=== PATIENT | female | born 1935 | race Caucasian/White ===

== ENCOUNTER 2017-12-02 18:29 | Inpatient (IN) | payer OTHER ==
[~2017-12-02] VITALS: Ht 167.6 cm; Wt 42.0 kg
[~2017-12-02 18:29] MED LIST: ASPI-611 PO; ATOR10TA PO; CARV3.12 PO; CIPR-260 PO; IPRA3AMP IH; LEVO75TA7 PO; LISI1TAB13 PO; SERIN IH
[2017-12-02] MEDS ORDERED: methylPREDNISolone sod succ 125mg/2ml vial IV ONE (18:45)
[2017-12-02] MEDS ORDERED: ipratropium/albuterol 3ml nebule NEB ONE (18:45)
[2017-12-02] MEDS ORDERED: normal saline 1000ML IV soln IVB ONE (18:45)
[2017-12-02 19:10] LABS: BASOPHILS % (AUTO) 0.1 % (0-1); EOSINOPHILS # (AUTO) 0.1 X10'3 (0-0.9); EOSINOPHILS % (AUTO) 1.5 % (0-6); HEMATOCRIT 42.7 % (35.0-45.0); HEMOGLOBIN 14.4 g/dl (12.0-16.0); LYMPHOCYTES # (AUTO) 0.7 X10'3 (1.1-4.8); LYMPHOCYTES % (AUTO) 9.1 % (21-51); MEAN CORPUSCULAR HEMOGLOBIN 30.8 PG (27.0-31.0); MEAN CORPUSCULAR HGB CONC 33.7 % (33.0-36.5); MEAN CORPUSCULAR VOLUME 91.6 FL (78-98); MEAN PLATELET VOLUME 7.4 FL (7.4-10.4); MONOCYTES # (AUTO) 0.4 X10'3 (0-0.9); NEUTROPHILS # (AUTO) 6.4 X10'3 (1.8-7.7); NEUTROPHILS % (AUTO) 84.3 % (42-75); PLATELET COUNT 213 X10'3 (140-440); RED BLOOD COUNT 4.67 X10'6 (4.20-5.60); WHITE BLOOD COUNT 7.6 X10'3 (4.5-11.0)
[2017-12-02 19:24] LABS: INR 0.9 INR; PARTIAL THROMBOPLASTIN TIME 28 SECONDS (22-32); PROTHROMBIN TIME 9.5 SECONDS (9.0-12.0)
[2017-12-02 19:36] LABS: ALANINE AMINOTRANSFERASE 42 U/L (12-78); ALBUMIN/GLOBULIN RATIO 1.2 (1.1-1.5); ALKALINE PHOSPHATASE 95 IU/L (46-116); ANION GAP 4 (8-16); ASPARTATE AMINO TRANSFERASE 41 U/L (10-37); BILIRUBIN,TOTAL 0.4 MG/DL (0.1-1.0); BLOOD UREA NITROGEN 17 MG/DL (7-18); CHLORIDE 100 MMOL/L (99-107); CREATININE 0.81 MG/DL (0.40-0.90); GLUCOSE 137 MG/DL (70-104); SODIUM 138 MMOL/L (135-145); TOTAL CARBON DIOXIDE 34.5 MMOL/L (24-32); TOTAL PROTEIN 7.4 G/DL (6.4-8.2); eGFR 68 ML/MIN
[2017-12-02] MEDS ORDERED: normal saline 1000ml 1,000 ML IV SCH (22:16)
[2017-12-02] MEDS ORDERED: diphenhydrAMINE 25mg capsule PO PRN (22:20)
[2017-12-02] MEDS ORDERED: magnesium hydroxide 30ml (MOM) UD suspension PO PRN (22:20)
[2017-12-02] MEDS ORDERED: morphine 2 MG/ML inj. syringe IV PRN ×2 (22:20)
[2017-12-02] MEDS ORDERED: acetaminophen 650mg rectal suppository RC PRN (22:20)
[2017-12-02] MEDS ORDERED: HYDROcodone/acetaminophen 5mg/325mg tablet PO PRN (22:20)
[2017-12-02] MEDS ORDERED: diphenhydrAMINE 50 mg/ml inj IV PRN (22:20)
[2017-12-02] MEDS ORDERED: bisacodyl 10mg suppository rectal RC PRN (22:20)
[2017-12-02] MEDS ORDERED: metoclopramide 5 mg/ml inj IV PRN (22:20)
[2017-12-02] MEDS ORDERED: acetaminophen 325mg tablet PO PRN ×2 (22:20)
[2017-12-02] MEDS ORDERED: mag hydrox/Alum hydrox/simeth 30ml oral suspension PO PRN (22:20)
[2017-12-02] MEDS ORDERED: ondansetron/PF 4mg/2ml inj IV PRN (22:20)
[2017-12-02] MEDS ORDERED: HYDROmorphone inj. 0.5 MG/0.5 ML DISP.SYRIN IV PRN ×2 (22:20)
[2017-12-02] MEDS ORDERED: levoFLOXACIN-Levaquin 500mg/D5 100 ML IV ONE (22:40)
[2017-12-02 22:47] LABS: MAGNESIUM 1.8 MG/DL (1.5-2.4)
[2017-12-02 23:30] VITALS: BP 151/108
[2017-12-03] MEDS ORDERED: cefTRIAXone 1g/NS 100ml IVPB 100 ML IV ONE (00:20)
[2017-12-03] MEDS: temazepam 15mg capsule PO PRN ×2 (02:06→21:57)
[2017-12-03] MEDS: ipratropium/albuterol 3ml nebule IH SCH ×3 (07:30→21:00)
[2017-12-03] MEDS: methylPREDNISolone sod succ 125mg/2ml vial IV SCH ×2 (07:49→19:41)
[2017-12-03] MEDS: levoTHYROXINE 75mcg tablet PO SCH (07:49)
[2017-12-03] MEDS: aspirin 81mg tablet.DR PO SCH (07:50)
[2017-12-03] MEDS: HYDROchlorothiazide 12.5mg capsule PO SCH (07:50)
[2017-12-03] MEDS: carVEDilol 3.125mg tablet PO SCH ×2 (07:50→19:41)
[2017-12-03] MEDS: lisinopril 10 MG tablet PO SCH (07:51)
[2017-12-03] MEDS: azithromycin 250mg tablet PO SCH (07:51)
[2017-12-03] MEDS: heparin, porcine 5000 units/ml vial SQ SCH ×2 (07:51→19:41)
[2017-12-03] MEDS: cefTRIAXone 1g/NS 100ml IVPB 100 ML IV SCH ×2 (07:56→19:41)
[2017-12-03] MEDS: docusate sod 100mg capsule PO SCH ×2 (07:56→19:35)
[2017-12-03] MEDS: atorvastatin 10mg tablet PO SCH (07:57)
[2017-12-03 08:00] LABS: BASOPHILS % (AUTO) 0.1 % (0-1); EOSINOPHILS # (AUTO) 0.1 X10'3 (0-0.9); HEMATOCRIT 40.6 % (35.0-45.0); HEMOGLOBIN 13.7 g/dl (12.0-16.0); LYMPHOCYTES # (AUTO) 0.7 X10'3 (1.1-4.8); LYMPHOCYTES % (AUTO) 9.7 % (21-51); MEAN CORPUSCULAR HEMOGLOBIN 31.1 PG (27.0-31.0); MEAN CORPUSCULAR HGB CONC 33.7 % (33.0-36.5); MEAN CORPUSCULAR VOLUME 92.2 FL (78-98); MEAN PLATELET VOLUME 7.3 FL (7.4-10.4); MONOCYTES # (AUTO) 0.3 X10'3 (0-0.9); MONOCYTES % (AUTO) 3.9 % (2-12); NEUTROPHILS # (AUTO) 6.1 X10'3 (1.8-7.7); NEUTROPHILS % (AUTO) 85.3 % (42-75); PLATELET COUNT 192 X10'3 (140-440); RED BLOOD COUNT 4.41 X10'6 (4.20-5.60); RED CELL DISTRIBUTION WIDTH 14.1 % (11.5-14.5); WHITE BLOOD COUNT 7.2 X10'3 (4.5-11.0)
[2017-12-03 08:13] VITALS: BP 121/77
[2017-12-03 08:30] LABS: ALANINE AMINOTRANSFERASE 38 U/L (12-78); ALBUMIN 3.4 G/DL (3.4-5.0); ALBUMIN/GLOBULIN RATIO 1.1 (1.1-1.5); ALKALINE PHOSPHATASE 76 IU/L (46-116); ANION GAP 5 (8-16); ASPARTATE AMINO TRANSFERASE 29 U/L (10-37); BILIRUBIN,TOTAL 0.3 MG/DL (0.1-1.0); BLOOD UREA NITROGEN 16 MG/DL (7-18); BUN/CREATININE RATIO 21.6 (6.6-38.0); CALCIUM 9.4 MG/DL (8.5-10.1); CHLORIDE 104 MMOL/L (99-107); CREATININE 0.74 MG/DL (0.40-0.90); GLUCOSE 124 MG/DL (70-104); POTASSIUM 3.9 MMOL/L (3.5-5.1); SODIUM 143 MMOL/L (135-145); TOTAL CARBON DIOXIDE 34.1 MMOL/L (24-32); TOTAL PROTEIN 6.5 G/DL (6.4-8.2); eGFR 76 ML/MIN
[2017-12-03 11:45] VITALS: BP 146/69
[2017-12-03] MEDS: HYDROcodone/acetaminophen 10/325mg tab PO PRN (14:44)
[2017-12-03 18:00] VITALS: BP 155/76
[2017-12-03] MEDS ORDERED: levoFLOXACIN-Levaquin 250mg/D5 50 ML IV SCH (21:00)
[2017-12-04] VITALS: BP 144/77
[2017-12-04 05:35] LABS: BASOPHILS % (AUTO) 0.1 % (0-1); EOSINOPHILS # (AUTO) 0.1 X10'3 (0-0.9); EOSINOPHILS % (AUTO) 1.5 % (0-6); HEMATOCRIT 38.6 % (35.0-45.0); HEMOGLOBIN 13.2 g/dl (12.0-16.0); LYMPHOCYTES # (AUTO) 0.7 X10'3 (1.1-4.8); LYMPHOCYTES % (AUTO) 8.2 % (21-51); MEAN CORPUSCULAR HGB CONC 34.1 % (33.0-36.5); MEAN PLATELET VOLUME 7.4 FL (7.4-10.4); MONOCYTES # (AUTO) 0.4 X10'3 (0-0.9); MONOCYTES % (AUTO) 4.6 % (2-12); NEUTROPHILS # (AUTO) 7.5 X10'3 (1.8-7.7); NEUTROPHILS % (AUTO) 85.6 % (42-75); PLATELET COUNT 167 X10'3 (140-440); RED BLOOD COUNT 4.24 X10'6 (4.20-5.60); RED CELL DISTRIBUTION WIDTH 13.6 % (11.5-14.5); WHITE BLOOD COUNT 8.8 X10'3 (4.5-11.0)
[2017-12-04 06:37] LABS: ALANINE AMINOTRANSFERASE 33 U/L (12-78); ALBUMIN 3.1 G/DL (3.4-5.0); ALBUMIN/GLOBULIN RATIO 1.1 (1.1-1.5); ALKALINE PHOSPHATASE 68 IU/L (46-116); ANION GAP 3 (8-16); ASPARTATE AMINO TRANSFERASE 26 U/L (10-37); BILIRUBIN,TOTAL 0.2 MG/DL (0.1-1.0); BLOOD UREA NITROGEN 18 MG/DL (7-18); BUN/CREATININE RATIO 25.7 (6.6-38.0); CALCIUM 9.6 MG/DL (8.5-10.1); CHLORIDE 104 MMOL/L (99-107); GLUCOSE 119 MG/DL (70-104); POTASSIUM 4.8 MMOL/L (3.5-5.1); SODIUM 143 MMOL/L (135-145); eGFR 81 ML/MIN
[2017-12-04] MEDS: levoTHYROXINE 75mcg tablet PO SCH (07:00)
[2017-12-04] MEDS: ipratropium/albuterol 3ml nebule IH SCH ×2 (07:22→14:22)
[2017-12-04] MEDS: HYDROcodone/acetaminophen 10/325mg tab PO PRN (07:54)
[2017-12-04 08:00] VITALS: BP 143/61
[2017-12-04] MEDS: docusate sod 100mg capsule PO SCH (08:00)
[2017-12-04] MEDS: atorvastatin 10mg tablet PO SCH (08:00)
[2017-12-04] MEDS: carVEDilol 3.125mg tablet PO SCH (08:35)
[2017-12-04] MEDS: cefTRIAXone 1g/NS 100ml IVPB 100 ML IV SCH (08:35)
[2017-12-04] MEDS: methylPREDNISolone sod succ 125mg/2ml vial IV SCH (08:35)
[2017-12-04] MEDS: aspirin 81mg tablet.DR PO SCH (08:35)
[2017-12-04] MEDS: heparin, porcine 5000 units/ml vial SQ SCH (08:35)
[2017-12-04] MEDS: lisinopril 10 MG tablet PO SCH (08:36)
[2017-12-04] MEDS: azithromycin 250mg tablet PO SCH (08:36)
[2017-12-04] MEDS: HYDROchlorothiazide 12.5mg capsule PO SCH (08:36)
[2017-12-04 14:05] LABS: ABG BASE EXCESS 4.5 mmol/L (-2.0-3.0); ABG HCO3 38.6 mmol/L (22.0-26.0); ABG OXYGEN SATURATION 98.9 % (95-98); ABG PCO2 (T) 125.3 mmHg (32.0-45.0); ABG PH (T) 7.107 (7.350-7.450); ABG PO2 (T) 193.1 mmHg (83-108); ALLEN'S TEST Positive; FCOHb 0.2 % (0.5-1.5); FLOW 6 L/min; FMetHb 0.3 % (0.3-1.12); FO2Hb 98.4 % (94-100); TOTAL HEMOGLOBIN 14.2 G/dl (12.0-16.0)
[2017-12-04 14:29] VITALS: BP 157/82
[2017-12-04] MEDS ORDERED: LORazepam 2 mg/ml vial ONE (15:12)
[2017-12-04] MEDS ORDERED: morphine 10mg/0.5ml (conc. morphine) oral syringe PO PRN (15:15)
[2017-12-04] MEDS ORDERED: acetaminophen 325mg tablet PO PRN (15:15)
[2017-12-04] MEDS ORDERED: morphine 4 MG/ML inj SYRINge IV PRN (15:15)
[2017-12-04] MEDS ORDERED: LORazepam 2 mg/ml vial IV PRN (15:15)
[2017-12-04] MEDS ORDERED: lactobacillus rhamnosus 10,000 MMU CELLS/CAPSULE PO SCH (17:30)
[2017-12-04 19:00] VITALS: BP 92/45
[2017-12-04] MEDS ORDERED: docusate sod 100mg capsule PO SCH (20:00)
== END 2017-12-04 23:15 | disposition expired | DRG 871 ==
LOC: ER 18:29 → ED HOLD 22:16 → SUR 3N 23:34 → ICU 2S 12-04 14:17 → UNDODISIN 12-04 23:15
PROVIDERS: ADMIT Family Medicine
PROC: 5A09357 Assistance with Respiratory Ventilation, Less than 24 Consecutive Hours, Continuous Positive Airway Pressure (ICD-10-PCS; principal; 2017-12-04)
DX: A41.9 Sepsis, unspecified organism (principal); J18.9 Pneumonia, unspecified organism; J96.21 Acute and chronic respiratory failure with hypoxia; I11.0 Hypertensive heart disease with heart failure; J44.0 Chronic obstructive pulmonary disease with (acute) lower respiratory infection; Z99.81 Dependence on supplemental oxygen; I50.20 Unspecified systolic (congestive) heart failure; J44.1 Chronic obstructive pulmonary disease with (acute) exacerbation; I25.10 Atherosclerotic heart disease of native coronary artery without angina pectoris; F41.9 Anxiety disorder, unspecified; E89.0 Postprocedural hypothyroidism; R91.1 Solitary pulmonary nodule; Z51.5 Encounter for palliative care; Z90.710 Acquired absence of both cervix and uterus; Z87.442 Personal history of urinary calculi; Z87.891 Personal history of nicotine dependence
CPT/HCPCS: 36415; 36600; 71045; 71250; 80053; 82803; 83605; 83735; 83880; 84100; 84484; 85018; 85025; 85610; 85730; 87040; 87070; 87502; 87503; 93005; 94640; 94660; 94667; 94668; 94760; 96361; 96374; 99285; A4353; A6213; J0696; J1200; J1644; J1956; J2060; J2270; J2930; J7030